=== PATIENT | male | born 1980 | race Caucasian/White ===

== ENCOUNTER 2017-11-07 01:11 | Emergency (ER) | payer BC ==
[~2017-11-07] VITALS: Ht 165.1 cm; Wt 76.7 kg
[2017-11-07 01:19] VITALS: Ht 165.1 cm; Wt 76.7 kg
[2017-11-07 02:43] LABS: CALCIUM 8.3 mg/dL (8.5-10.1); CARBON DIOXIDE 31.6 mmol/L (21-32); CHLORIDE SERUM 103 mmol/L (98-107); CREATININE SERUM 0.9 mg/dL (0.7-1.3); GFR1 > 60 mL/min; GLUCOSE SERUM 92 mg/dL (74-106); POTASSIUM SERUM 4.1 mmol/L (3.5-5.1); SODIUM SERUM 139 mmol/L (136-145)
[2017-11-07 02:48] LABS: ALBUMIN 3.7 g/dL (3.4-5.0); ALKALINE PHOSPHATASE 74 U/L (46-116); ALT/SGPT 40 U/L (16-63); AMYLASE 89 U/L (25-115); AST/SGOT 25 U/L (15-37); BASOPHIL % 0.3 % (0-2); BILIRUBIN TOTAL 0.3 mg/dL (0.20-1.00); LIPASE 371 IU/L (73-393); PLATELET COUNT 266 x10^3mcL (130-400); RED CELL DISTRIBUTION WIDTH 13.2 % (11.5-14.5); TOTAL PROTEIN, SERUM 7.7 g/dL (6.4-8.2)
[2017-11-07 04:45] LABS: microscopic required? NO
[2017-11-07 04:50] LABS: UA SPECIFIC GRAVITY >=1.030 (1.005-1.035); urine erythrocyte NEGATIVE (NEGATIVE)
[2017-11-07 05:20] VITALS: BP 103/66
== END 2017-11-07 05:20 | disposition home or self-care (01) ==
LOC: ED 01:11
PROVIDERS: Emergency Medicine
DX: R10.31 Right lower quadrant pain (principal); R11.2 Nausea with vomiting, unspecified
CPT/HCPCS: J1885; J7030; Q0162

== ENCOUNTER 2017-11-21 23:16 | Emergency (ER) | payer BC ==
[~2017-11-21] VITALS: Ht 165.1 cm; Wt 80.3 kg
[2017-11-21 23:45] VITALS: Ht 165.1 cm; Wt 80.3 kg
[2017-11-22 02:23] LABS: UA SPECIFIC GRAVITY >=1.030 (1.005-1.035); microscopic required? YES; urine erythrocyte NEGATIVE (NEGATIVE)
[2017-11-22 02:43] VITALS: BP 131/98
== END 2017-11-22 02:43 | disposition home or self-care (01) ==
LOC: ED 23:16
PROVIDERS: Emergency Medicine
DX: S39.012A Strain of muscle, fascia and tendon of lower back, initial encounter (principal); N39.0 Urinary tract infection, site not specified; X58.XXXA Exposure to other specified factors, initial encounter; Y93.89 Activity, other specified; Y92.89 Other specified places as the place of occurrence of the external cause; Y99.8 Other external cause status
CPT/HCPCS: J1885

== ENCOUNTER 2017-12-16 05:17 | Emergency (ER) | payer BC ==
[~2017-12-16] VITALS: Ht 165.1 cm; Wt 79.1 kg
[2017-12-16 05:24] VITALS: BP 185/93; Ht 165.1 cm; Wt 79.1 kg
== END 2017-12-16 06:00 | disposition home or self-care (01) ==
LOC: ED 05:17
DX: M54.5 Low back pain (principal); Z87.19 Personal history of other diseases of the digestive system